=== PATIENT | female | born 1945 | race Caucasian/White ===

== ENCOUNTER 2016-09-06 10:45 | Emergency (ER) | payer MEDICARE, OTHER ==
[~2016-09-06] VITALS: Ht 170.2 cm; Wt 107.1 kg
[2016-09-06 10:48] VITALS: BP 156/85; PULSE 71; RESP 20; TEMP 97.8; O2SAT 90
[2016-09-06] MEDS ORDERED: LISI2.5T3 PO (11:12)
[2016-09-06] MEDS ORDERED: PRED20 PO (11:12)
[2016-09-06] MEDS ORDERED: ALBUTEROL NEBS (11:12)
[2016-09-06] MEDS ORDERED: DOXY100C PO (11:12)
[2016-09-06] MEDS ORDERED: ATEN25TA PO (11:12)
[2016-09-06] MEDS ORDERED: MUCI30TA2 PO (11:12)
[2016-09-06] MEDS ORDERED: FOLI1TAB4 PO (11:12)
[2016-09-06] MEDS ORDERED: RESP: LIDOCAINE HCL 4% PF 5 ML NEB NEB ONE (11:30)
[2016-09-06] MEDS ORDERED: SODIUM CHLORIDE 0.9% FLUSH 5 ML FLUSH IVF PRN (11:30)
[2016-09-06] MEDS ORDERED: methylPREDNISolone SOD SUCC 125 MG/2 ML VIAL IVP ONE (11:30)
[2016-09-06 11:32] VITALS: O2SAT 94
[2016-09-06 11:39] LABS: BASOPHIL # 0.1 TH/MM3 (0-0.2); BASOPHIL % 0.8 % (0.0-2.0); EOSINOPHIL % 0.4 % (0.0-4.0); HEMATOCRIT 40.5 % (35.0-46.0); HEMO FLAGS DIFF FINAL; LYMPH % 24.3 % (9.0-44.0); LYMPHOCYTE # 2.9 TH/MM3 (1.0-4.8); MEAN CELL VOLUME 94.3 FL (80.0-100.0); MEAN CORPUSCULAR HEMOGLOBIN 31.2 PG (27.0-34.0); MEAN CORPUSCULAR HGB CONC 33.1 % (32.0-36.0); MONO % 6.5 % (0.0-8.0); PLATELET COUNT 198 TH/MM3 (150-450); RED CELL DISTRIBUTION WIDTH 12.2 % (11.6-17.2); WHITE BLOOD COUNT 11.8 TH/MM3 (4.0-11.0)
--- NOTE | 2016-09-06 11:39 | PD ---
HPI Chief Complaint: Respiratory Symptoms Time Seen by Provider: 11:01 Travel History International Travel<30 days: No Contact w/Intl Traveler<30days: No Traveled to known affect area: No History of Present Illness HPI The patient is a 71-year-old female who presents emergency department for a one-week history of cough and cold symptoms. The patient was seen at an urgent care earlier this week and was diagnosed with bronchitis. The patient was placed on doxycycline, prednisone, and has been using albuterol nebulizers at home. However, the patient continues to be symptomatic with wheezing, dry nonproductive cough, mild shortness of breath. The patient is currently visiting from [place], is in town for the [facility]. The patient denies any history of pulmonary embolism, DVT, recent hospitalizations, or recent surgery. She denies any new edema to lower extremities. The patient denies any company chest pain. The patient does have a history of bronchitis, quit smoking 25 years ago. PFSH Past Medical History Cardiovascular Problems: Yes (HTN) Diminished Hearing: Yes Hypertension: Yes Tetanus Vaccination: Unknown ?: Not Past Surgical History Eye Surgery: Yes (RIGHT CATARACT REMOVED) Other Surgery: Yes (COLON RESECTION) Social History Alcohol Use: Yes (SOC) Tobacco Use: No Substance Use: No Allergies-Medications (Allergen,Severity, Reaction): Coded Allergies: No Known Allergies (Unverified , 09/06/16) Reported Meds & Prescriptions Reported Meds & Active Scripts Active Reported [Albuterol Nebs] Doxycycline Hyclate 100 Mg Cap 100 Mg PO BID Folate (Folic Acid) 1 Mg Tab 1 Mg PO DAILY Atenolol 25 Mg Tab Unknown Dose PO DAILY Lisinopril 2.5 Mg Tab Unknown Dose PO DAILY Mucinex DM (Dextromethorphan-Guaifenesin) 30-600 Mg Tab 1 Tab PO BID PRN Review of Systems Except as stated in HPI: all other systems reviewed are Neg General / Constitutional: No: Fever HENT: Positive: Congestion Cardiovascular: No: Chest Pain or Discomfort Respiratory: Positive: Cough, Shortness of Breath, Wheezing Gastrointestinal: No: Nausea, Vomiting, Abdominal Pain Musculoskeletal: No: Weakness, Edema Neurologic: No: Weakness, Dizziness Physical Exam Narrative GENERAL: Awake, alert, pleasant 71-year-old female who appears her stated age and is in no acute respiratory distress. SKIN: Warm and dry. HEAD: Atraumatic. Normocephalic. EYES: Pupils equal and round. No scleral icterus. No injection or drainage. ENT: No nasal bleeding or discharge. Mucous membranes pink and moist. NECK: Trachea midline. No JVD. CARDIOVASCULAR: Regular rate and rhythm. No murmur appreciated. RESPIRATORY: No accessory muscle use. Prolonged expiratory phase with wheezing noted in all 4 lung jacobs, rhonchi noted in the right base. GASTROINTESTINAL: Abdomen soft, non-tender, nondistended. Ileostomy in place. MUSCULOSKELETAL: No obvious deformities. No clubbing. No cyanosis. No edema. Calves are soft bilaterally. NEUROLOGICAL: Awake and alert. No obvious cranial nerve deficits. Motor grossly within normal limits. Normal speech. PSYCHIATRIC: Appropriate mood and affect; insight and judgment normal. Data Data Last Documented VS Vital Signs Date Time Temp Pulse Resp B/P Pulse Ox O2 Delivery O2 Flow Rate FiO2 09/06/16 11:32 94 Nasal Cannula 2 09/06/16 10:57 20 09/06/16 10:48 97.8 71 156/85 Orders Complete Blood Count With Diff (09/06/16 11:22) Comprehensive Metabolic Panel (09/06/16 11:22) B-Type Natriuretic Peptide (09/06/16 11:22) Magnesium (Mg) (09/06/16 11:22) Ckmb (Isoenzyme) Profile (09/06/16 11:22) Troponin I (09/06/16 11:22) Iv Access Insert/Monitor (09/06/16 11:22) Electrocardiogram (09/06/16 11:22) Ecg Monitoring (09/06/16 11:22) Oximetry (09/06/16 11:22) Oxygen Administration (09/06/16 11:22) Chest, Single Ap (09/06/16 11:22) Sodium Chloride 0.9% Flush (Ns Flush) (09/06/16 11:30) Methylprednisolone So Succ Inj (Solumedr (09/06/16 11:30) Albuterol-Ipratropium Neb (Duoneb Neb) (09/06/16 11:30) Lidocaine Pf 4% Neb (Lidocaine Pf 4% Neb (09/06/16 11:30) Labs Laboratory Tests Test 09/06/16 11:20 White Blood Count 11.8 TH/MM3 Red Blood Count 4.30 MIL/MM3 Hemoglobin 13.4 GM/DL Hematocrit 40.5 % Mean Corpuscular Volume 94.3 FL Mean Corpuscular Hemoglobin 31.2 PG Mean Corpuscular Hemoglobin 33.1 % Concent Red Cell Distribution Width 12.2 % Platelet Count 198 TH/MM3 Mean Platelet Volume 8.1 FL Neutrophils (%) (Auto) 68.0 % Lymphocytes (%) (Auto) 24.3 % Monocytes (%) (Auto) 6.5 % Eosinophils (%) (Auto) 0.4 % Basophils (%) (Auto) 0.8 % Neutrophils # (Auto) 8.0 TH/MM3 Lymphocytes # (Auto) 2.9 TH/MM3 Monocytes # (Auto) 0.8 TH/MM3 Eosinophils # (Auto) 0.0 TH/MM3 Basophils # (Auto) 0.1 TH/MM3 CBC Comment DIFF FINAL Differential Comment Sodium Level 143 MEQ/L Potassium Level 3.4 MEQ/L Chloride Level 105 MEQ/L Carbon Dioxide Level 29.9 MEQ/L Anion Gap 8 MEQ/L Blood Urea Nitrogen 19 MG/DL Creatinine 1.00 MG/DL Estimat Glomerular Filtration 55 ML/MIN Rate Random Glucose 145 MG/DL Calcium Level 8.6 MG/DL Magnesium Level 2.0 MG/DL Total Bilirubin 0.4 MG/DL Aspartate Amino Transf 50 U/L (AST/SGOT) Alanine Aminotransferase 98 U/L (ALT/SGPT) Alkaline Phosphatase 95 U/L Total Creatine Kinase 32 U/L Troponin I LESS THAN 0.02 NG/ML B-Type Natriuretic Peptide 103 PG/ML Total Protein 7.5 GM/DL Albumin 3.3 GM/DL [facility] Medical Decision Making Medical Screen Exam Complete: Yes Emergency Medical Condition: Yes Medical Record Reviewed: Yes Interpretation(s) EKG reveals sinus bradycardia with a rate of 57. Q wave noted in lead V1 and V2. Laboratory Tests Test 09/06/16 11:20 White Blood Count 11.8 TH/MM3 Red Blood Count 4.30 MIL/MM3 Hemoglobin 13.4 GM/DL Hematocrit 40.5 % Mean Corpuscular Volume 94.3 FL Mean Corpuscular Hemoglobin 31.2 PG Mean Corpuscular Hemoglobin 33.1 % Concent Red Cell Distribution Width 12.2 % Platelet Count 198 TH/MM3 Mean Platelet Volume 8.1 FL Neutrophils (%) (Auto) 68.0 % Lymphocytes (%) (Auto) 24.3 % Monocytes (%) (Auto) 6.5 % Eosinophils (%) (Auto) 0.4 % Basophils (%) (Auto) 0.8 % Neutrophils # (Auto) 8.0 TH/MM3 Lymphocytes # (Auto) 2.9 TH/MM3 Monocytes # (Auto) 0.8 TH/MM3 Eosinophils # (Auto) 0.0 TH/MM3 Basophils # (Auto) 0.1 TH/MM3 CBC Comment DIFF FINAL Differential Comment Sodium Level 143 MEQ/L Potassium Level 3.4 MEQ/L Chloride Level 105 MEQ/L Carbon Dioxide Level 29.9 MEQ/L Anion Gap 8 MEQ/L Blood Urea Nitrogen 19 MG/DL Creatinine 1.00 MG/DL Estimat Glomerular Filtration 55 ML/MIN Rate Random Glucose 145 MG/DL Calcium Level 8.6 MG/DL Magnesium Level 2.0 MG/DL Total Bilirubin 0.4 MG/DL Aspartate Amino Transf 50 U/L (AST/SGOT) Alanine Aminotransferase 98 U/L (ALT/SGPT) Alkaline Phosphatase 95 U/L Total Creatine Kinase 32 U/L Troponin I LESS THAN 0.02 NG/ML B-Type Natriuretic Peptide 103 PG/ML Total Protein 7.5 GM/DL Albumin 3.3 GM/DL Chest x-ray reveals no acute abnormality. Differential Diagnosis Differential diagnosis includes bronchitis, pneumonia, COPD exacerbation, pulmonary embolism, congestive heart failure, pleural effusion, acute coronary syndrome. Narrative Course IV was established, labs are drawn and sent, and the patient was placed on cardiac telemetry monitoring and continuous pulse oximetry monitoring. EKG was ordered and interpreted. Chest x-ray was ordered. The patient was administered Solu-Medrol 125 mg intravenously and duo nebs 3. The patient's BNP is only 103. The patient's troponin and CPK are unremarkable. Chest x- rays clear. LFTs are mildly elevated. The patient was reevaluated, her symptoms had improved. Patient is advised to finish the doxycycline as previously directed, will be placed on Medrol Dosepak, and is advised to use albuterol nebulizers every 4 hours. She is also advised to return in 24-48 hours if symptoms do not improve as she may need oxygen therapy and IV steroids. The patient agrees and understands. Diagnosis Primary Impression: Bronchitis Patient Instructions: General Instructions Additional Instructions: Medications as directed. Albuterol nebulizers every 4 hours. Return if symptoms worsen or progress. Follow-up with your primary physician in [place]. Med/Other Pt SpecificInfo: Prescription(s) given Scripts Albuterol Neb 2.5 Mg/3 Ml Neb2.5 Mg NEB Q4HR NEB #60 NEBULE Ref 0 While awake Prov:Ilya Hall MD 09/06/16 Methylprednisolone Dosepak (Medrol Dosepak)4 Mg Dspk4 Mg PO DIRECTED #1 DSPK Ref 0 Per Pharmacist direction Prov:Ilya Hall MD 09/06/16 Disposition: DISCHARGE HOME Condition: Stable Ilya Hall MD Sep 06, 2016 11:39
[2016-09-06] MEDS: RESP: ALBUTEROL 2.5 MG/IPRATROPIUM 0.5 MG NEB (SCH) INH ×2 (11:41→11:42)
[2016-09-06 11:47] LABS: CHLORIDE 105 MEQ/L (98-107); POTASSIUM 3.4 MEQ/L (3.5-5.1); SODIUM (NA) 143 MEQ/L (136-145)
--- NOTE | 2016-09-06 11:47 | RADHPO ---
EXAM DATE/TIME: 09/06/2016 11:39 [facility] COMPARISON: No previous studies available for comparison. INDICATIONS : Short of breath today, slight chest pain, former smoker 25 years ago, no heart or lung surgery MEDICAL HISTORY : None. SURGICAL HISTORY : None. ENCOUNTER: Initial ACUITY: 1 day PAIN SCORE: 2/10 LOCATION: Left chest FINDINGS: The heart is at the upper limits of normal in size. The lungs are clear. Visualized bony structures a re grossly intact. CONCLUSION: No acute abnormality. Christopher Amor MD on September 06, 2016 at 11:44 Board Certified Radiologist. This report was verified electronically.
[2016-09-06 11:51] LABS: ANION GAP 8 MEQ/L (5-15); BICARBONATE 29.9 MEQ/L (21.0-32.0); BLOOD UREA NITROGEN 19 MG/DL (7-18)
[2016-09-06 11:54] LABS: ALT (GPT) 98 U/L (10-53); AST (GOT) 50 U/L (15-37); GLOMERULAR FILTRATION RATE 55 ML/MIN (>89)
[2016-09-06 11:55] LABS: TOTAL BILIRUBIN ADULT 0.4 MG/DL (0.2-1.0)
[2016-09-06 11:56] LABS: ALKALINE PHOSPHATASE 95 U/L (45-117)
[2016-09-06 12:04] LABS: CREATINE KINASE 32 U/L (26-192)
[2016-09-06] MEDS ORDERED: MEDR4PAK PO (12:18)
[2016-09-06] MEDS ORDERED: ALBU0.08 NEB (12:18)
[2016-09-06 12:21] VITALS: BP 149/73
--- NOTE | 2016-09-07 17:19 | EKG ---
Date Performed: 09/06/2016 Time Performed: 11:33:18 PTAGE: 71 years EKG: Sinus bradycardia Possible septal infarct - age undetermined Abnormal ECG NO PREVIOUS TRACING No prior tracing for comparison. Clinical correlation recommended. DOCTOR: Guru Gallegos Interpretating Date/Time 09/07/2016 17:18:39
== END 2016-09-06 12:37 | disposition home or self-care (01) ==
LOC: PHED 10:45
DX: J40 Bronchitis, not specified as acute or chronic (principal); I10 Essential (primary) hypertension; R00.1 Bradycardia, unspecified
CPT/HCPCS: 71010; 80053; 82550; 83735; 83880; 84484; 85025; 93005; 94640; 94664; 96374; 99284; J2930